=== PATIENT | male | born 1935 | race Caucasian/White ===

== ENCOUNTER → 2016-11-15 | Outpatient (CLI) | payer OTHER ==
[~2016-11-15] MED LIST: ALUM-30 PO; ALUMSUS2 PO; ASPI81TA28 PO; LISI-729 PO; MULT-506 PO; OMEG12006 PO; OXYC-57 PO; PRLSR20 PO
[2016-11-15 13:34] LABS: ALT/SGPT 33 U/L (12-78); AST/SGOT 17 U/L (15-37); BLOOD UREA NITROGEN 20 mg/dl (7-18); BUN/CREATININE RATIO 13.6 (10-20); CALCIUM 8.5 mg/dl (8.5-10.1); CARBON DIOXIDE 28 mmol/L (21-32); CHLORIDE 105 mmol/L (98-107); GLUCOSE 88 mg/dl (70-99); POTASSIUM 4.5 mmol/L (3.5-5.1); SODIUM 140 mmol/L (136-145)
[2016-11-15 13:37] LABS: ALB/GLOB RATIO 1.3 (0.9-2); ALKALINE PHOSPHATASE 55 U/L (45-117); CHOLESTEROL 115 mg/dl (0-200); CHOLESTEROL/HDL RATIO 1.6; HDL CHOLESTEROL 70 mg/dl; LDL CHOLESTEROL CALCULATED 33 mg/dl; TRIGLYCERIDES 60 mg/dl (0-150); VERY LOW DENSITY LIPOPROT CALC 12 mg/dl
[2016-11-16 05:38] LABS: ESTIMATED AVERAGE GLUCOSE 108 mg/dl; HA1C FLAG Normal (Normal)
== END | disposition home or self-care (01) ==
LOC: C.LABMFLN 10:11
PROVIDERS: ATTEND Family Medicine
DX: I10 Essential (primary) hypertension (principal); K21.9 Gastro-esophageal reflux disease without esophagitis; I44.0 Atrioventricular block, first degree; R73.01 Impaired fasting glucose; E78.5 Hyperlipidemia, unspecified

== ENCOUNTER 2016-12-26 07:52 | Day surgery (SDC) | payer OTHER ==
[2016-12-20 08:41] VITALS: BMI 29.0
--- NOTE | 2016-12-20 09:04 | PAT Medication Instructions ---
Service Date Dec 20, 2016. Current Home Medication List Aluminum/Magnesium/Simeth (Maalox Max Susp), 1 DOSE PO DAILY PRN for STOMACH Aspirin (Aspirin Ec), 81 MG PO DAILY PRN for WHEN REMEMBERS Lisinopril (Prinivil), 5 MG PO QAM Multivitamin (Multivitamin), 1 TAB PO QAM David-3 Fatty Acids (David 3), 1 CAP PO QAM Omeprazole (Prilosec), 20 MG PO DAILY PRN for STOMACH Medication Instructions For Your Scheduled Surgery - Check with surgeon for instructions: Aspirin (Aspirin Ec), 81 MG PO DAILY PRN for WHEN REMEMBERS - Hold the following medications starting 11/2316: David-3 Fatty Acids (David 3), 1 CAP PO QAM - Hold the following medications the morning of surgery: Aluminum/Magnesium/Simeth (Maalox Max Susp), 1 DOSE PO DAILY PRN for STOMACH Multivitamin (Multivitamin), 1 TAB PO QAM Lisinopril (Prinivil), 5 MG PO QAM - Take the following medications the morning of surgery with a sip of water: Omeprazole (Prilosec), 20 MG PO DAILY PRN for STOMACH - Take the following medications as scheduled the night before surgery: Aluminum/Magnesium/Simeth (Maalox Max Susp), 1 DOSE PO DAILY PRN for STOMACH If you have any questions please call us at [phone] (Marina Guillaume PA-C) or [phone] or [phone]
[2016-12-20 09:45] LABS: BASO % 0.2 %; BASO ABS # 0.01 K/uL (0-0.2); COMPLETE YES; EOS % 7.1 %; HEMATOCRIT 38.9 % (42-52); IG% 0.2 %; LYMPH % 29.2 %; LYMPH ABS # 1.39 K/uL (1.2-3.4); MEAN CELL VOLUME 100.8 fL (80-100); MEAN CORPUSCULAR HEMOGLOBIN 36.3 pg (25-34); MEAN PLATELET VOLUME 9.2 fL (7.4-10.4); MONO % 16.2 %; NEUT % 47.1 %; PLATELET COUNT 215 K/uL (130-400); RED BLOOD COUNT 3.86 M/uL (4.7-6.1); WHITE BLOOD COUNT 4.76 K/uL (4.8-10.8)
[2016-12-20 10:06] LABS: BUN/CREATININE RATIO 13.6 (10-20); CREATININE 1.4 mg/dl (0.60-1.40); POTASSIUM 4.6 mmol/L (3.5-5.1)
--- NOTE | 2016-12-20 10:12 | DIAGNOSTIC IMAGING REPORT ---
TWO VIEW CHEST CLINICAL HISTORY: Preoperative examination. FINDINGS: PA and lateral chest radiographs are obtained. No prior studies are available for comparison at the time of dictation. The cardiomediastinal silhouette is unremarkable. There is mild atherosclerotic calcification of the thoracic aorta. The lungs appear hyperinflated and hyperlucent with flattening of the diaphragm and increased retrosternal clear space suggesting obstructive physiology. Nonspecific interstitial thickening is noted. No airspace consolidation or pleural effusion is seen. There is no pneumothorax. The skeletal structures are osteopenic. The bony thorax appears intact. Degenerative change and mild scoliosis are noted throughout the thoracic spine. IMPRESSION: Findings suggest obstructive physiology. There is no active disease in the chest. Electronically signed by: Jose Elias Villegas M.D. 12/20/2016 10:11 AM Dictated Date/Time: 12/20/2016 10:10 AM
[~2016-12-26] VITALS: Ht 162.6 cm; Wt 76.6 kg
[~2016-12-26 07:52] MED LIST changes: -ALUM-30 PO; +ATROPINE SULFATE 0.1 MG/ML 5ML SYR IV PRN; +EpHEDrine SULFATE INJ 50 MG/ML AMP IV PRN; +FENTANYL CITRATE INJ 50 MCG/1 ML 2 ML VIAL IV PRN; +HYDROmorphone INJ 0.5 MG/0.5 ML SYR IV PRN; +LACTATED RINGER'S 1000ML 1,000 ML IV SCH; +ONDANSETRON INJ 2 MG/ML 2 ML VIAL IV PRN; -OXYC-57 PO
[2016-12-26] MEDS ORDERED: CEFAZOLIN SOD 1 GM VIAL ONE (08:11)
--- NOTE | 2016-12-26 08:17 | Discharge Instructions ---
Discharge Instructions Date of Service Dec 26, 2016. Visit Reason for Visit: Right Inguinal Hernia Discharge Discharge Diagnosis / Problem: Right inguinal hernia repair Discharge Goals Goal(s): Decrease discomfort Activity Recommendations Activity Limitations: as noted below Lifting Limitations: no more than 10 pounds Shower/Bathe: tomorrow Driving or Machine Use: 1 week Anesthesia . Post Anesthesia Instructions: If you have had General Anesthesia or IV Sedation: * Do not drive today. * Resume driving when surgeon permits. * Do not make important decisions or sign legal documents today. * Call surgeon for: 1. Temperature elevations greater than 101 degrees F. 2. Uncontrollable pain. 3. Excessive bleeding. 4. Persistent nausea and vomiting. 5. Medication intolerance (nausea, vomiting or rash). * For nausea and vomiting use only clear liquids such as: tea, soda, bouillon until nausea subsides, then gradually increase diet as tolerated. * If you have any concerns or questions, call your surgeon's office. If physician is unavailable and it is an emergency, call 911 or go to the nearest emergency room. . Instructions / Follow-Up Instructions / Follow-Up Dr. Bowden in 1 week, call [phone] if you do not already have an appt or for any questions Ice right groin off and on alternating every 20 minutes until bedtime Diet Recommendations Recommended Home Diet: no limitations Pending Studies Studies pending at discharge: no Medical Emergencies . Who to Call and When: Medical Emergencies: If at any time you feel your situation is an emergency, please call 911 immediately. . Non-Emergent Contact Non-Emergency issues call your: Surgeon Call Non-Emergent contact if: you have a fever, temperature is above 101.5, your pain is not controlled, wound has increased redness . . "Provider Documentation" section prepared by Sixto Tijerina.
[2016-12-26] MEDS ORDERED: OXYC-57 PO (08:18)
[2016-12-26] MEDS ORDERED: LIDOCAINE HCL 2% 2 ML VIAL (20MG/ML) ONE (08:37)
[2016-12-26] MEDS ORDERED: PROPOFOL IV EMULSION 10 MG/ML 20 ML VIAL IV ONE (08:37)
[2016-12-26] MEDS ORDERED: FENTANYL CITRATE INJ 50 MCG/1 ML 2 ML VIAL ONE (08:37)
[2016-12-26] MEDS ORDERED: ONDANSETRON INJ 2 MG/ML 2 ML VIAL ONE (08:37)
[2016-12-26] MEDS ORDERED: MIDAZOLAM HCL 1 MG/ML 2ML VIAL ONE (08:37)
[2016-12-26] MEDS ORDERED: ALUM-30 PO (08:45)
[2016-12-26 08:48] VITALS: BP 151/78; PULSE 75; TEMP 37; O2SAT 97; Ht 162.6 cm; Wt 76.6 kg
--- NOTE | 2016-12-26 09:10 | History & Physical Bridge Note ---
H&P Re-Evaluation Bridge Note: I have examined the patient, reviewed the History & Physical and in the interval since the performance of the History & Physical I have noted the following changes of clinical significance: No changes noted pt examined procedure explained to pt and marked
[2016-12-26] MEDS ORDERED: BACITRACIN 50000 UNIT VIAL ONE (09:19)
[2016-12-26] MEDS ORDERED: DEXAMETHASONE SOD INJ 4 MG/ML VIAL ONE (09:48)
[2016-12-26] MEDS ORDERED: PHENYLEPHRINE 100MCG/ML 5ML SYR ONE (09:51)
[2016-12-26] MEDS: BUPIVACAINE 0.5 % 5 MG/1 ML MPF 30ML VIAL ONE (10:00)
[2016-12-26] MEDS ORDERED: LACTATED RINGER'S 1000ML 1,000 ML IV SCH (10:44)
[2016-12-26] MEDS ORDERED: MoRPHine SULFATE 4 MG/ML 1 ML CARP\\VIAL IV PRN (10:45)
[2016-12-26] MEDS ORDERED: ONDANSETRON INJ 2 MG/ML 2 ML VIAL IV PRN (10:45)
[2016-12-26] MEDS ORDERED: OXYCODONE/ACETAMINOPHEN 5-325 TAB PO PRN (10:45)
--- NOTE | 2016-12-26 10:47 | [facility] Post Operative Brief Note ---
Immediate Operative Summary Operative Date Dec 26, 2016. Pre-Operative Diagnosis Right Inguinal Hernia Post-Operative Diagnosis Right Inquinal Indirect Hernia, Direct Defect Procedure(s) Performed Right Open Inguinal Hernia Repair with Marlex Mesh, Tension Free Surgeon Dr. Anton Prescott Compensation Business Partner Surgeon(s) Sixto Tijerina PA-C Estimated Blood Loss 3ml Findings indirect hernia and direct defect Specimens A.) Hernia Sac and Nerve Ending
--- NOTE | 2016-12-26 11:28 | Anesthesiology Progress Note ---
Anesthesia Post Op Note Date & Time Dec 26, 2016 at 11:28 Vital Signs Pain Intensity: 5 Vital Signs Past 12 Hours Date Time Temp Pulse Resp B/P Pulse Ox O2 Delivery O2 Flow Rate FiO2 12/26/16 11:15 60 16 145/74 97 Room Air 12/26/16 11:05 57 16 139/73 100 Diffusion Mask 10 12/26/16 10:55 57 16 136/76 100 Diffusion Mask 10 12/26/16 10:44 36.2 72 16 145/75 100 Diffusion Mask 10 12/26/16 08:48 37 75 18 151/78 97 Room Air Notes Mental Status: alert / awake / arousable, participated in evaluation Pt Amnestic to Procedure: Yes Nausea / Vomiting: adequately controlled Pain: adequately controlled Airway Patency, RR, SpO2: stable & adequate BP & HR: stable & adequate Hydration State: stable & adequate Anesthetic Complications: no major complications apparent
[2016-12-26 11:37] VITALS: BP 153/74; PULSE 57; TEMP 36.9; O2SAT 97
[2016-12-26 12:05] VITALS: BP 158/66; PULSE 56; O2SAT 97
--- NOTE | 2016-12-26 12:09 | OPERATIVE REPORT ---
DATE OF OPERATION: 12/26/2016 PREOPERATIVE DIAGNOSIS: Symptomatic right inguinal hernia. POSTOPERATIVE DIAGNOSIS: Right indirect inguinal hernia, direct defect. PROCEDURE: Open repair and repaired with Marlex mesh tension free. SURGEON: Dr. Bowden. GROUNDSKEEPING YARDMAN: Joshua Tijerina PA-C. OPERATION AND FINDINGS: SUMMARY: The patient was brought into the operating room theater under general LMA anesthesia. The lower quadrant was prepped with Betadine scrubbing solution and systemic antibiotics were given. We used 0.5% Marcaine preemptive local analgesia 2 fingerbreadths medial to anterior superior iliac crest and just subfascial to the external oblique. An incision was made parallel to the inguinal ligament, deepened through subcutaneous tissue onto the external oblique. We then opened the external oblique down to the external ring and actually identified the ilioinguinal nerve, actually had entrapment into the external oblique to the point that looked may have a neuroma in the area that seemed to be atrophic in the mid portion. Being trapped as it was I elected to resect it. At this point, we then elevated the cord and its structures were able to identify an indirect hernia which we milked off the cord structures and identified that there was sliding compartment to it. There were no real contents. At this point enough resected and sufficiently closed with chromic suture of 3-0 and returned it into the internal ring. Cord structure itself was freed from surrounding tissue with some cremasteric fibers were ligated. The patient also had a direct defect coming in from the internal ring, there was another piece of fatty tissue preperitoneal that was going down into and adherent to the direct defect, resected at its base. I used 3-0 interrupted silk sutures to reapproximate and close all this fatty tissue and indirect hernia down and reconstruct the internal ring so we could plan for further onlay mesh. The patient also had a direct defect but not significant enough to get it out of the way, sometimes we used a 3-0 silk suture so we could expose the field a little bit better. We then brought a sheet of Marlex mesh, sutured onto the symphysis pubis, shelving portion of the inguinal ligament, superior to the conjoined tendon and reconstruct the internal ring that it could only accommodate the tip of a hemostat. The cord and its structures were then checked for hemostasis and appeared satisfactory. We closed the external oblique on top of the cord structures and the mesh, completely exteriorizing the mesh from subcutaneous tissue. We could reconstruct the external ring also. A 3-0 Dexon was brought together to reapproximate the subcutaneous tissues, francy for skin edges. Dressing was applied. The procedure was tolerated well by the patient. Minimal blood loss. The patient was taken to recovery in good condition. I attest to the content of the Intraoperative Record and any orders documented therein. Any exceptio ns are noted below.
[2016-12-26] MEDS ORDERED: OXYCODONE/ACETAMINOPHEN 5-325 TAB ONE (12:23)
[2016-12-26 12:35] VITALS: BP 148/71; PULSE 58; TEMP 36.6; O2SAT 98
--- NOTE | 2016-12-26 12:38 | Medical Student: [facility] ---
Immediate Operative Summary Operative Date Dec 26, 2016. Pre-Operative Diagnosis Right inguinal hernia Post-Operative Diagnosis Right indirect inguinal hernia with direct defect Procedure(s) Performed Open right inguinal hernia repair with mesh Surgeon Dr. Bowden [employer]rup Maker Surgeon(s) Sixto Mosqueda PA-C Estimated Blood Loss 3 ml Findings Right indirect inguinal hernia with direct defect Specimens Nerve ending and hernia sac Drains None Anesthesia LMA/Block Complication(s) None Disposition Recovery Room / PACU
[2016-12-26 13:32] VITALS: BP 145/66; PULSE 59; TEMP 36; O2SAT 98
== END 2016-12-26 13:32 | disposition home or self-care (01) ==
LOC: C.ACU 07:52
PROVIDERS: ATTEND Surgery
DX: K40.90 Unilateral inguinal hernia, without obstruction or gangrene, not specified as recurrent (principal); I12.9 Hypertensive chronic kidney disease with stage 1 through stage 4 chronic kidney disease, or unspecified chronic kidney disease; N18.2 Chronic kidney disease, stage 2 (mild); Z88.2 Allergy status to sulfonamides; E78.5 Hyperlipidemia, unspecified; Z79.82 Long term (current) use of aspirin; Z68.29 Body mass index [BMI] 29.0-29.9, adult; Z96.643 Presence of artificial hip joint, bilateral; Z80.9 Family history of malignant neoplasm, unspecified; Z82.0 Family history of epilepsy and other diseases of the nervous system; Z82.49 Family history of ischemic heart disease and other diseases of the circulatory system; Z82.3 Family history of stroke; Z83.42 Family history of familial hypercholesterolemia

== ENCOUNTER → 2017-07-17 | Outpatient (CLI) | payer OTHER ==
[~2017-07-17] MED LIST changes: +ALUM-30 PO; -ALUMSUS2 PO; -ATROPINE SULFATE 0.1 MG/ML 5ML SYR IV PRN; -EpHEDrine SULFATE INJ 50 MG/ML AMP IV PRN; -FENTANYL CITRATE INJ 50 MCG/1 ML 2 ML VIAL IV PRN; -HYDROmorphone INJ 0.5 MG/0.5 ML SYR IV PRN; -LACTATED RINGER'S 1000ML 1,000 ML IV SCH; -ONDANSETRON INJ 2 MG/ML 2 ML VIAL IV PRN; -PRLSR20 PO
[2017-07-17 13:35] LABS: BASO % 0.5 %; BASO ABS # 0.02 K/uL (0-0.2); COMPLETE YES; EOS % 6.6 %; IG% 0.2 %; LYMPH % 32.9 %; LYMPH ABS # 1.45 K/uL (1.2-3.4); MEAN CELL VOLUME 103.1 fL (80-100); MEAN CORPUSCULAR HEMOGLOBIN 36.1 pg (25-34); MEAN PLATELET VOLUME 9.6 fL (7.4-10.4); MONO % 16.1 %; NEUT % 43.7 %; PLATELET COUNT 223 K/uL (130-400); RED BLOOD COUNT 3.88 M/uL (4.7-6.1); WHITE BLOOD COUNT 4.41 K/uL (4.8-10.8)
[2017-07-17 13:42] LABS: URINE APPEARANCE CLEAR (CLEAR); URINE BILIRUBIN NEG (NEG); URINE COLOR YELLOW; URINE NITRITE NEG (NEG); URINE PH 5.5 (4.5-7.5); URINE SPECIFIC GRAVITY 1.017 (1.000-1.030); UROBILINOGEN NEG (NEG)
[2017-07-17 13:43] LABS: MANUAL MICROSCOPIC REQUIRED? NO; REVIEW REQ? NO
[2017-07-17 14:43] LABS: BLOOD UREA NITROGEN 17 mg/dl (7-18); CREATININE 1.31 mg/dl (0.60-1.40); GLUCOSE 105 mg/dl (70-99)
[2017-07-17 14:44] LABS: ALT/SGPT 23 U/L (12-78); AST/SGOT 19 U/L (15-37); BUN/CREATININE RATIO 12.6 (10-20); CALCIUM 8.9 mg/dl (8.5-10.1); CARBON DIOXIDE 27 mmol/L (21-32); CHLORIDE 106 mmol/L (98-107); CHOLESTEROL 114 mg/dl (0-200); POTASSIUM 4.6 mmol/L (3.5-5.1); SODIUM 138 mmol/L (136-145); TRIGLYCERIDES 36 mg/dl (0-150); VERY LOW DENSITY LIPOPROT CALC 7 mg/dl
[2017-07-17 14:46] LABS: CHOLESTEROL/HDL RATIO 1.5; HDL CHOLESTEROL 76 mg/dl; LDL CHOLESTEROL CALCULATED 31 mg/dl
== END | disposition home or self-care (01) ==
LOC: C.LABMFLN 06:54
PROVIDERS: ATTEND Family Medicine
DX: I12.9 Hypertensive chronic kidney disease with stage 1 through stage 4 chronic kidney disease, or unspecified chronic kidney disease (principal); E78.5 Hyperlipidemia, unspecified; N18.2 Chronic kidney disease, stage 2 (mild)

== ENCOUNTER → 2018-01-23 | Outpatient (CLI) | payer OTHER ==
[2018-01-23 13:54] LABS: ALT/SGPT 26 U/L (12-78); AST/SGOT 21 U/L (15-37); BLOOD UREA NITROGEN 19 mg/dl (7-18); CALCIUM 8.9 mg/dl (8.5-10.1); CARBON DIOXIDE 26 mmol/L (21-32); CREATININE 1.39 mg/dl (0.60-1.40); GLUCOSE 115 mg/dl (70-99); POTASSIUM 4.5 mmol/L (3.5-5.1); SODIUM 136 mmol/L (136-145)
[2018-01-23 13:57] LABS: CHOLESTEROL 113 mg/dl (0-200); LDL CHOLESTEROL CALCULATED 39 mg/dl
== END | disposition home or self-care (01) ==
LOC: C.LABMFLN 07:17
PROVIDERS: ATTEND Family Medicine
DX: R35.0 Frequency of micturition (principal); I10 Essential (primary) hypertension; R73.01 Impaired fasting glucose; E78.5 Hyperlipidemia, unspecified